=== PATIENT | female | born 1965 | race Caucasian/White ===

== ENCOUNTER 2016-06-12 09:36 | Emergency (ER) | payer OTHER ==
[~2016-06-12] VITALS: Ht 170.2 cm; Wt 102.0 kg
[~2016-06-12 09:36] MED LIST: BUPR-175 PO; GABA300C3 PO; HYDR12.56 PO; METO25CR PO
[2016-06-12 09:44] VITALS: BP 130/79; PULSE 80; RESP 16; TEMP 98.4; O2SAT 99
[2016-06-12] MEDS ORDERED: HYDR12.57 PO (10:00)
[2016-06-12] MEDS ORDERED: BUPR100CR PO (10:00)
[2016-06-12] MEDS ORDERED: PRED2.5T PO (10:00)
[2016-06-12] MEDS ORDERED: MYCO250 PO (10:00)
[2016-06-12] MEDS ORDERED: METO25TA3 PO (10:00)
[2016-06-12] MEDS ORDERED: GABA100C4 PO (10:00)
[2016-06-12] MEDS ORDERED: RESP: ALBUTEROL 2.5 MG/IPRATROPIUM 0.5 MG NEB (SCH) INH ONE (10:15)
[2016-06-12] MEDS ORDERED: DEXAMETHASONE SOD PHOS 20 MG/5 ML VIAL IM ONE (10:15)
--- NOTE | 2016-06-12 10:49 | RADHPO ---
EXAM DATE/TIME: 06/12/2016 10:31 [facility] COMPARISON: CHEST PA & LAT, January 12, 2013, 12:45. INDICATIONS : Cough, short of breath MEDICAL HISTORY : sarcoidosis SURGICAL HISTORY : None. ENCOUNTER: Initial ACUITY: 1 week PAIN SCORE: 0/10 LOCATION: Bilateral chest FINDINGS: PA and lateral views of the chest demonstrate a nonspecific infiltrate in the right middle lobe. Othe rwise, the lungs are clear and well-aerated. There are no pleural effusions or pulmonary edema.. The cardiomediastinal contours are unremarkable and stable. Osseous structures are intact and stable. CONCLUSION: There is a new nonspecific infiltrate in the right middle lobe. Otherwise, no other new or significan t changes compared to the prior study. Chung Hoover MD on June 12, 2016 at 10:45 Board Certified Radiologist. This report was verified electronically.
[2016-06-12] MEDS ORDERED: AZIT500T2 PO (11:25)
--- NOTE | 2016-06-12 11:25 | PD ---
HPI Chief Complaint: Cold / Flu Symptoms Time Seen by Provider: 09:57 Travel History International Travel<30 days: No Contact w/Intl Traveler<30days: No Traveled to known affect area: No History of Present Illness HPI Patient is a 50-year-old female presents to emergency room with complaints of cough for the past 9 days. Patient reports that she has had increased cough with productive whitish sputum for the past 9 days. Patient reports that cough is worse at nighttime. Patient reports no fevers or chills. She does report some sore throat with her symptoms. Patient did go to an urgent care center on Monday and was told that "there was nothing when with me." Patient reports that she is still symptomatic and continues to have a productive cough. Patient with no chest pain or shortness breath at this time. Patient with no sick contacts, no recent travels or trips. Patient with no chest pain or shortness of breath. Patient with no other complaints. PFSH Past Medical History Arthritis: No Asthma: No Blood Disorders: No Anxiety: Yes Depression: Yes Heart Rhythm Problems: Yes (PALPITATIONS) Cancer: No Cardiovascular Problems: Yes (htn) High Cholesterol: No Chest Pain: No Congestive Heart Failure: No COPD: No Cerebrovascular Accident: No Diabetes: No Diminished Hearing: No Deep Vein Thrombosis: Yes (left leg, STATES SUPERFICIAL VARICOSE VEIN AND WAS REMOVED) Endocrine: No GERD: No Glaucoma: No Genitourinary: No Headaches: Yes Hepatitis: No Hiatal Hernia: No Hypertension: Yes Immune Disorder: No Kidney Stones: Yes Medical other: Yes (rountinely no but after surgery pt experiences n/v) Musculoskeletal: Yes ("back pain") Neurologic: No Psychiatric: Yes Reproductive: No Respiratory: Yes (sacrodosis) Myocardial Infarction: No Sleep Apnea: No Thyroid Disease: No ?: Not Past Surgical History Abdominal Surgery: Yes (spleenectomy) AICD: No Cardiac Surgery: No Ear Surgery: No Endocrine Surgery: No Eye Surgery: No Genitourinary Surgery: No Gynecologic Surgery: Yes (hysterectomy left groin lymph nodes removed) Hysterectomy: Yes Neurologic Surgery: Yes Oral Surgery: Yes (tonsillectomy) Thoracic Surgery: No Tonsillectomy: Yes Other Surgery: Yes (splenectomy "lymph nodes removed from left groin") Family History Family History: Negative Social History Alcohol Use: No Tobacco Use: No Substance Use: No Allergies-Medications (Allergen,Severity, Reaction): Coded Allergies: Adhesives (Verified Allergy, Severe, rash, 06/12/16) Contrast Media (Verified Allergy, Severe, FACIAL AND MOUTH SWELLING, ) Morphine (Verified Allergy, Severe, rash, 06/12/16) Reported Meds & Prescriptions Reported Meds & Active Scripts Active Reported Prednisone 2.5 Mg Tab Unknown Dose PO DAILY Cellcept (Mycophenolate Mofetil) 250 Mg Cap Unknown Dose PO BID Hydrochlorothiazide 12.5 Mg Cap Unknown Dose PO BID Metoprolol Tartrate 25 Mg Tab Unknown Dose PO BID Wellbutrin SR 12 HR (Bupropion HCl) 100 Mg Tab Unknown Dose PO Q12HR Gabapentin 100 Mg Cap Unknown Dose PO BID Review of Systems General / Constitutional: No: Fever, Chills Eyes: No: Visual changes HENT: No: Headaches Cardiovascular: No: Chest Pain or Discomfort Respiratory: Positive: Cough, No: Shortness of Breath Gastrointestinal: No: Abdominal Pain Genitourinary: No: Dysuria Musculoskeletal: No: Pain Skin: No Rash Neurologic: No: Weakness Psychiatric: No: Depression Endocrine: No: Polydipsia Hematologic/Lymphatic: No: Easy Bruising Physical Exam Narrative GENERAL: No acute distress, nontoxic SKIN: Warm and dry. HEAD: Atraumatic. Normocephalic. ENT: No nasal bleeding or discharge. Mucous membranes pink and moist. NECK: Trachea midline. No JVD. CARDIOVASCULAR: Regular rate and rhythm. No murmur appreciated. RESPIRATORY: No accessory muscle use. Slight expiratory wheeze to the right upper lobe of lungs. Breath sounds equal bilaterally. GASTROINTESTINAL: Abdomen soft, non-tender, nondistended. Hepatic and splenic margins not palpable. MUSCULOSKELETAL: No obvious deformities. No clubbing. No cyanosis. No edema. NEUROLOGICAL: Awake and alert. Motor grossly within normal limits. Normal speech. Data Data Last Documented VS Vital Signs Date Time Temp Pulse Resp B/P Pulse Ox O2 Delivery O2 Flow Rate FiO2 06/12/16 09:44 98.4 80 16 130/79 99 Orders Chest, Pa & Lat (06/12/16 10:01) Dexamethasone Inj (Decadron Inj) (06/12/16 10:15) Albuterol-Ipratropium Neb (Duoneb Neb) (06/12/16 10:15) Azithromycin (Zithromax) (06/12/16 11:30) MDM Medical Decision Making Medical Screen Exam Complete: Yes Emergency Medical Condition: Yes Interpretation(s) Vital Signs Date Time Temp Pulse Resp B/P Pulse Ox O2 Delivery O2 Flow Rate FiO2 06/12/16 09:44 98.4 80 16 130/79 99 Last Impressions Chest X-Ray 06/12/16 1001 Signed Impressions: Service Date/Time: Sunday, June 12, 2016 10:31 - CONCLUSION: There is a new nonspecific infiltrate in the right middle lobe. Otherwise, no other new or significant changes compared to the prior study. Chung Hoover MD Differential Diagnosis viral syndrome, influenza, pneumonia Narrative Course Patient is a 50-year-old female who presents to ER with complaints of productive cough for the past 9 days. Patient reports no fevers or chills. Patient with no chest pain or shortness of breath.Patient with no sick contacts. Reports that cough has been persistent, reports that she did follow up with an urgent care center and reports that she was told that "i was okay." Patient here for evaluation. Patient reevaluated, patient feeling much better. Reviewed x-ray chest with patient. X-ray with right middle lobe infiltrate. Discussed with patient need for treatment for pneumonia, patient will follow-up with her primary care doctor and return to ER as needed. Last Impressions Chest X-Ray 06/12/16 1001 Signed Impressions: Service Date/Time: Sunday, June 12, 2016 10:31 - CONCLUSION: There is a new nonspecific infiltrate in the right middle lobe. Otherwise, no other new or significant changes compared to the prior study. Chung Hoover MD Diagnosis Primary Impression: Pneumonia Qualified Code: J18.1 - Pneumonia of right middle lobe due to infectious organism Patient Instructions: General Instructions Additional Instructions: Please follow-up with your primary care doctor Return to ER as needed Return to ER if symptoms worsen or progress Med/Other Pt SpecificInfo: Prescription(s) given Scripts Azithromycin 500 Mg Uuv101 Mg PO DAILY #5 TAB Ref 0 Prov:Ericka Bullock DO 06/12/16 Disposition: 01 DISCHARGE HOME Condition: Stable Ericka Bullock DO Jun 12, 2016 11:25
[2016-06-12] MEDS ORDERED: AZITHROMYCIN 250 MG TAB PO ONE (11:30)
== END 2016-06-12 11:32 | disposition home or self-care (01) ==
LOC: PHED 09:36
DX: J18.1 Lobar pneumonia, unspecified organism (principal)
CPT/HCPCS: 71020; 94664; 96372; 99283; J1100